=== PATIENT | female | born 1960 | race Caucasian/White ===

== ENCOUNTER 2017-08-23 13:00 | Emergency (ER) | payer MEDICARE, OTHER ==
[2017-08-23 13:24] VITALS: BP 140/75
--- NOTE | 2017-08-23 13:25 | ED Physician Documentation ---
Nausea/Vomiting/Diarrhea - HISTORIAN Historian: patient, spouse - HPI Stated Complaint: Emesis and diarrhea Chief Complaint: Nausea,Vomiting,Diarrhea Onset: other (Since last ) Duration: waxing, waning Last known Well Date: 08/17/17 Last Known Well Time: 08:00 Last known Well Code/Unknown Code: Unknown Timing: gradual onset Context: other (states they were out shopping ). denies: out of country travel , bad food, recent trauma Severity: moderate Further Comments: yes (She reports she has had some nausea and vomiting since . She had two days of diarrhea. That has passed. She states she is not sure if she had a fever (no themometer) but has had chills. She has tried to not eat or drink but is scared to vomit. She has not had any vomting or diarrhea today. she does have nausea) - Associated Symptoms Vomiting: mild Diarrhea: other (Stopped two days ago ) Abdominal Pain: none - ROS CONST: none CVS/RESP: denies: cough MS/SKIN/LYMPH: rash - PAST HX Past History: none Surgeries/Procedures: none Immunizations: referred to PCP Allergies/Adverse Reactions: Allergies Allergy/AdvReac Type Severity Reaction Status Date / Time Sulfa (Sulfonamide Allergy Severe Hives Verified 08/23/17 13:25 Antibiotics) [Sulfa(Sulfonamide Antibiotics)] gabapentin [From Neurontin] Allergy Verified 08/23/17 13:25 pregabalin [From Lyrica] Allergy Verified 08/23/17 13:25 Home Medications: Ambulatory Orders Medication Instructions Recorded Carisoprodol [Soma] 350 mg PO TID 10/03/12 Carisoprodol [Soma] 250 mg PO TID 12/19/15 Chlorthalidone [Thalitone] 25 mg PO DAILY 12/19/15 Lorazepam [Lorazepam] 1 mg PO BID 12/19/15 Omeprazole 20 mg PO DAILY 12/19/15 Potassium [Potassium] 99 mg PO DAILY 12/19/15 Ranitidine HCl 150 mg PO HS 12/19/15 Ondansetron HCl Rapdis [Zofran Odt] 4 mg PO Q8 #30 tab 08/23/17 - SOCIAL HX Smoking History: cigarettes - FAMILY HX Family History: none - VITAL SIGNS Vital Signs: Vital Signs Temp Pulse Resp BP Pulse Ox 96.5 F L 94 H 19 140/75 98 08/23/17 13:12 08/23/17 13:12 08/23/17 13:12 08/23/17 13:12 08/23/17 13:12 - REVIEWED ASSESSMENTS Nursing Assessment Reviewed: Yes Vitals Reviewed: Yes ED Results Lab/Radiology - Lab Results Lab Results: Lab Results 08/23/17 08/23/17 13:50 13:50 WBC 2.40 K/ul L K/ul (4.00-12.00) RBC 3.61 M/ul L M/ul (3.90-5.20) Hgb 12.7 g/dL g/dL (12.0-16.0) Hct 40.3 % % (34.5-46.5) MCV 111.6 fl H fl (80.0-100.0) MCH 35.1 pg H pg (28.0-34.0) MCHC 31.4 g/dL g/dL (30.0-36.0) RDW 12.7 % % (11.3-14.3) Plt Count 209 K/mm3 K/mm3 (130-400) Neut % (Auto) 63.5 % % (39.0-79.0) Lymph % (Auto) 29.0 % % (16.0-50.0) Vance % (Auto) 3.5 % % (0.0-11.0) Eos % (Auto) 2.0 % % (0.0-6.8) Baso % (Auto) 0.5 (0.0-1.5) Neut # (Auto) 1.6 # k/uL # k/uL (1.4-7.7) Lymph # (Auto) 0.7 # k/uL # k/uL (0.6-4.0) Vance # (Auto) 0.1 # k/uL # k/uL (0.0-0.9) Eos # (Auto) 0.0 # k/uL # k/uL (0.0-0.6) Baso # (Auto) 0.0 # k/uL # k/uL (0.0-0.5) Reactive Lymphs % 1.4 % % (0.0-5.0) Reactive Lymphs # 0.0 # k/uL # k/uL (0.0-0.8) Sodium 137 mmol/L mmol/L (136-145) Potassium 3.4 mmol/L L mmol/L (3.5-5.1) Chloride 99 mmol/L mmol/L (98-107) Carbon Dioxide 27 mmol/L mmol/L (22-30) BUN 4 mg/dL L mg/dL (7-17) Creatinine 0.80 mg/dL mg/dL (0.52-1.04) Estimated Creat Clear 180 Est GFR ( Amer) > 60 (60 - ) Est GFR (Non-Af Amer) > 60 (60 - ) Glucose 96 mg/dL mg/dL (74-106) Calcium 8.9 mg/dL mg/dL (8.4-10.2) Total Bilirubin 0.9 mg/dL mg/dL (0.2-1.3) AST 48 U/L H U/L (15-46) ALT 38 U/L U/L (13-69) Alkaline Phosphatase 67 U/L U/L (38-126) Total Protein 9.0 g/dL H g/dL (6.3-8.2) Albumin 4.5 g/dL g/dL (3.5-5.0) - Orders Orders: ED Orders Category Date Time Status Place IV Lock 1T Care 08/23/17 13:36 Active CBC/PLATELET/DIFF Stat Lab 08/23/17 13:50 Completed CMP Stat Lab 08/23/17 13:50 Completed INFLUENZA A&B Stat Lab 08/23/17 13:36 Ordered 0.9 % Sodium Chloride [Normal Saline] 1,000 ml Med 08/23/17 13:37 Discontinued IV Q1H Ondansetron HCl/Pf [Zofran 4 mg/2 ml] Med 08/23/17 13:37 Discontinued 4 mg IVP NOW ONE Nausea Physical Exam - EXAM General Appearance: no acute distress EENT: eye inspection normal Respiratory: no resp distress, chest non-tender, wheezes CVS: reg rate & rhythm, heart sounds normal, equal pulses, no murmur Abdomen: non-tender, no organomegaly Skin: warm/dry Extremities: non-tender Neuro/Psych: oriented X3, CN's nml as tested, motor nml Discharge Clincal Impression: Nausea & vomiting Qualifiers: Vomiting type: unspecified Vomiting Intractability: unspecified Qualified Code( s): R11.2 - Nausea with vomiting, unspecified Prescriptions: Ondansetron HCl Rapdis [Zofran Odt] 4 mg PO Q8 #30 tab Referrals: Christiano Field MD [Primary Care Provider] - 2 Days Comments: Increase fluids. Whitman foods when introducing foods. Return for fever or inability to hold down foods or/liquids with zofran or decrease in urinary output. DG Condition: Stable Disposition: 01 HOME, SELF-CARE Decision to Admit: NO Date of Decison to Admit: 08/23/17 Decision Time: 14:30
[2017-08-23] MEDS ORDERED: 0.9 % SODIUM CHLORIDE 1,000 ML IV ONE (13:37)
[2017-08-23] MEDS ORDERED: ONDANSETRON HCL/PF 4 MG/ 2ML VIAL IVP ONE (13:37)
[2017-08-23 14:20] LABS: BASOPHILS % 0.5 (0.0-1.5); MEAN CORPUSCULAR HEMOGLOBIN 35.1 pg (28.0-34.0); MEAN CORPUSCULAR VOLUME 111.6 fl (80.0-100.0); MONOCYTES % 3.5 % (0.0-11.0); NEUTROPHILS # 1.6 # k/uL (1.4-7.7)
[2017-08-23 14:21] LABS: eGFR (African) > 60; eGFR (Non-African) > 60
== END 2017-08-23 14:38 | disposition home or self-care (01) ==
LOC: ED 13:00
DX: R11.2 Nausea with vomiting, unspecified (principal)
CPT/HCPCS: 80053; 85025; J2405; 87400; 96361; 96374; 99283; S1016

== ENCOUNTER 2017-08-28 17:40 | Emergency (ER) | payer MEDICARE, OTHER ==
--- NOTE | 2017-08-28 17:59 | ED Physician Documentation ---
Upper Respiratory Symptoms - HISTORIAN Historian: patient - HPI Stated Complaint: fever, fatigue and cough Chief Complaint: Fever Onset: days ago (2) Duration: constant Context: denies: recent foreign travel, tick(s), recent chemotherapy, multiple patients Severity: moderate Associated Symptoms: fever, sweating, sinus pain, sore throat, productive cough , shortness of breath Worsened by Deep Breath: Yes Further Comments: yes (She was in the ER 5 days ago with N/V/D and she was given meds for nausea and she states that "the night before last" she started with fever 102 and she woke up this after noon with a cough, fatigue and fever. She has tried OTC meds with little to no relief. She does not thinks she has had any sick contacts. She does smoke. She does take pain meds at home but reports she has not taken one today.) - ROS CONST/EYES: weakness CVS/RESP: shortness of breath. denies: chest pain, palpitations LYMPH: denies: rash GI/: denies: none NEURO/PSYCH: confusion (she is falling alseep while intake is happening ). denies: fainting, dizziness MS/SKIN: muscle aches. denies: rash - PAST HX Lung Disease: COPD PE Risk Factors: hypertension Surgeries/Procedures: none Immunizations: UTD - SOCIAL HX Smoking History: cigarettes Alcohol Use: none Drug Use: none - FAMILY HX Family History: none - REVIEWED ASSESSMENTS Nursing Assessment Reviewed: Yes Vitals Reviewed: Yes <Sushma Piper - Last Filed: 08/28/17 18:51> <Jerome Martins - Last Filed: 08/28/17 20:34> - PAST HX Allergies/Adverse Reactions: Allergies Allergy/AdvReac Type Severity Reaction Status Date / Time Sulfa (Sulfonamide Allergy Severe Hives Verified 08/23/17 13:25 Antibiotics) [Sulfa(Sulfonamide Antibiotics)] gabapentin [From Neurontin] Allergy Verified 08/23/17 13:25 pregabalin [From Lyrica] Allergy Verified 08/23/17 13:25 Home Medications: Ambulatory Orders Medication Instructions Recorded Carisoprodol [Soma] 350 mg PO TID 10/03/12 Carisoprodol [Soma] 250 mg PO TID 12/19/15 Chlorthalidone [Thalitone] 25 mg PO DAILY 12/19/15 Lorazepam [Lorazepam] 1 mg PO BID 12/19/15 Omeprazole 20 mg PO DAILY 12/19/15 Potassium [Potassium] 99 mg PO DAILY 12/19/15 Ranitidine HCl 150 mg PO HS 12/19/15 Ondansetron HCl Rapdis [Zofran Odt] 4 mg PO Q8 #30 tab 08/23/17 Amoxicillin [Trimox] 500 mg PO Q8H #30 capsule 08/28/17 - VITAL SIGNS Vital Signs: Vital Signs Temp Pulse Resp BP Pulse Ox 97.9 F 97 H 16 153/86 96 08/28/17 17:45 08/28/17 17:45 08/28/17 17:45 08/28/17 17:45 08/28/17 17:45 Progress <Sushma Piper - Last Filed: 08/28/17 18:51> <Jerome Martins - Last Filed: 08/28/17 20:34> - Progress Progress: Rx amoxicillin 500 mg po tid x 10 days, 1st dose in ER. (Jerome Martins) ED Results Lab/Radiology <Sushma Piper - Last Filed: 08/28/17 18:51> <Jerome Martins - Last Filed: 08/28/17 20:34> - Lab Results Lab Results: Lab Results 08/28/17 08/28/17 08/28/17 19:00 19:00 19:00 WBC 2.30 K/ul L K/ul (4.00-12.00) RBC 3.11 M/ul L M/ul (3.90-5.20) Hgb 10.7 g/dL L g/dL (12.0-16.0) Hct 34.2 % L % (34.5-46.5) MCV 110.2 fl H fl (80.0-100.0) MCH 34.4 pg H pg (28.0-34.0) MCHC 31.3 g/dL g/dL (30.0-36.0) RDW 12.8 % % (11.3-14.3) Plt Count 153 K/mm3 K/mm3 (130-400) Seg Neutrophils % 44 % % (39-79) Band Neutrophils % 9 % % (0-12) Lymphocytes % 40 % % (16-50) Monocytes % 2 % % (0-11) Eosinophils % 2 % % (0-7) Reactive Lymphocytes 3 % % (0-5) Plt Morphology Comment Normal (NORMAL) Hypochromasia 1+ H (NEGATIVE) Macrocytosis 2+ H (NEGATIVE) RBC Morph Comment Abnormal H (NORMAL) Sodium 132 mmol/L L mmol/L (136-145) Potassium 2.8 mmol/L L mmol/L (3.5-5.1) Chloride 95 mmol/L L mmol/L (98-107) Carbon Dioxide 28 mmol/L mmol/L (22-30) BUN 5 mg/dL L mg/dL (7-17) Creatinine 0.90 mg/dL mg/dL (0.52-1.04) Estimated Creat Clear 73 Est GFR ( Amer) > 60 (60 - ) Est GFR (Non-Af Amer) > 60 (60 - ) Glucose 100 mg/dL mg/dL (74-106) Calcium 8.2 mg/dL L mg/dL (8.4-10.2) Total Bilirubin 0.5 mg/dL mg/dL (0.2-1.3) AST 29 U/L U/L (15-46) ALT 38 U/L U/L (13-69) Alkaline Phosphatase 90 U/L U/L (38-126) NT-Pro-B Natriuret Pep 93.4 pg/mL pg/mL (15.0-125.0) Total Protein 7.6 g/dL g/dL (6.3-8.2) Albumin 3.8 g/dL g/dL (3.5-5.0) - Radiology Radiology Impressions: Pa and lateral chest Clinical history : Coughing the MRI spine. Technique pa and lateral upright Findings: The lung walton are clear. I see no hilar or mediastinal mass. Aortic arch calcification is present. Lung walton are hyperinflated. There is no pleural effusion. The normal kyphotic curve is straightened. Thoracic spondylosis is present.. Impression: No acute pulmonary disease Hyperinflation Electronically signed on Aug 28, 2017 6:50:20 PM METAL EXTR[employer]ION SUPERVISOR by: Adilson Thomas (Sushma Piper) - Orders Orders: ED Orders Category Date Time Status Place IV Lock 1T Care 08/28/17 18:04 Active CHEST 2 VIEW [CHEST P.A.&LAT 2 VIEWS] [RAD] Stat Exams 08/28/17 18:04 Taken BLOOD CULTURE Stat Lab 08/28/17 Ordered BNP [NT-proBNP] Stat Lab 08/28/17 19:00 Completed CBC/PLATELET/DIFF Stat Lab 08/28/17 19:00 Completed CMP Stat Lab 08/28/17 19:00 Completed INFLUENZA A&B Stat Lab 08/28/17 18:05 Ordered 0.9 % Sodium Chloride [Normal Saline] 1,000 ml Med 08/28/17 18:05 Discontinued IV Q1H Amoxicillin [Amoxil] Med 08/28/17 20:21 Discontinued 500 mg PO NOW ONE Ipratropium/Albuterol Sulfate [Duoneb] Med 08/28/17 18:53 Discontinued 3 ml NEB NOW ONE Potassium Chloride [Klor-Con M20] Med 08/28/17 19:23 Discontinued 20 meq PO NOW ONE Sodium Chloride For Inhalation [Dey] Med 08/28/17 18:56 Discontinued 3 ml IH .STK-MED ONE EKG WITH COMPARISON Stat Ther 08/28/17 Ordered Upper Respiratory Symptoms - EXAM General Appearance: lethargic (she is falling asleep with exam and intake ) EENT: pharynx nml Neck: normal inspection Respiratory: decreased air movement, wheezes, rhonchi Abdomen: non-tender, no organomegaly, nml bowel sounds CVS: reg rate & rhythm, heart sounds normal, equal pulses, no murmur Skin: color nml, no rash, warm,dry Extremities: non-tender, normal range of motion Neuro/Psych: oriented x3, neuro intact, other (she is oriented appropriately when she wakes but she does have to be stimulated to wake ) <Sushma Piper - Last Filed: 08/28/17 18:51> Discharge <Sushma Piper - Last Filed: 08/28/17 18:51> Decision to Admit: NO Decision Time: 20:24 <Jerome Martins - Last Filed: 08/28/17 20:34> Clincal Impression: Cough Prescriptions: Amoxicillin [Trimox] 500 mg PO Q8H #30 capsule Referrals: Christiano Field MD [Primary Care Provider] - Condition: Stable Disposition: 01 HOME, SELF-CARE
[2017-08-28] MEDS: 0.9 % SODIUM CHLORIDE 1,000 ML IV ONE (18:40)
[2017-08-28] MEDS ORDERED: SODIUM CHLORIDE 3 ML VIAL.NEB IH ONE (18:56)
[2017-08-28] MEDS: IPRATROPIUM/ALBUTEROL SULFATE 3 ML AMPUL.NEB NEB ONE (19:05)
[2017-08-28 19:13] LABS: MEAN CORPUSCULAR HEMOGLOBIN 34.4 pg (28.0-34.0); MEAN CORPUSCULAR VOLUME 110.2 fl (80.0-100.0)
[2017-08-28 19:20] LABS: eGFR (African) > 60; eGFR (Non-African) > 60
[2017-08-28] MEDS: POTASSIUM CHLORIDE 20 MEQ TABLET.ER PO ONE (19:42)
[2017-08-28 20:01] LABS: EOSINOPHILS % 2 % (0-7); HYPOCHROMASIA 1+ (NEGATIVE); MONOCYTES % 2 % (0-11); SEGMENTED NEUTROPHILS % 44 % (39-79)
[2017-08-28] MEDS: AMOXICILLIN 500 MG CAPSULE PO ONE (20:23)
[2017-08-28 20:40] VITALS: BP 160/82
--- NOTE | 2017-08-28 20:52 | Diagnostic Imaging Report ---
VINAY SABILLON [facility] [id number] [facility] [address] [place], [place]. [address] Report Submission Date: Aug 28, 2017 6:50:20 PM POULTRY KILLER Patient Study Name: JANE KWAN Date: Aug 28, 2017 6:30:31 PM POULTRY KILLER Modality Type: CR Gender: F Description: CHEST : 56 Institution: [facility] Physician: VINAY SABILLON Pa and lateral chest Clinical history : Coughing the MRI spine. Technique pa and lateral upright Findings: The lung walton are clear. I see no hilar or mediastinal mass. Aortic arch calcification is present. Lung walton are hyperinflated. There is no pleural effusion. The normal kyphotic curve is straightened. Thoracic spondylosis is present.. Impression: No acute pulmonary disease Hyperinflation Electronically signed on Aug 28, 2017 6:50:20 PM POULTRY KILLER by: Adilson MADISON
== END 2017-08-28 20:30 | disposition home or self-care (01) ==
LOC: ED 17:40
DX: R05 Cough (principal); R50.9 Fever, unspecified; J44.1 Chronic obstructive pulmonary disease with (acute) exacerbation; F17.210 Nicotine dependence, cigarettes, uncomplicated
CPT/HCPCS: 71020; 80053; 83880; 85025; 87400; 93005; A9270; J7030; 94640; 99283; S1016

== ENCOUNTER 2018-02-06 20:39 | Emergency (ER) | payer MEDICARE, OTHER ==
--- NOTE | 2018-02-06 20:55 | ED Physician Documentation ---
General Adult - HISTORIAN Historian: patient - HPI Stated Complaint: rash Chief Complaint: General Adult Onset: days ago Timing: still present Severity: moderate Further Comments: yes (Pt is a 57 yo female with a rash pruritic rash that she' s had for several days.) - ROS CONST: no problems EYES/ENT: none CVS/RESP: none GI/: none MS/SKIN/LYMPH: rash - PAST HX Past History: hypertension, other (GERD) Allergies/Adverse Reactions: Allergies Allergy/AdvReac Type Severity Reaction Status Date / Time Sulfa (Sulfonamide Allergy Severe Hives Verified 02/06/18 20:57 Antibiotics) [Sulfa(Sulfonamide Antibiotics)] gabapentin [From Neurontin] Allergy Verified 02/06/18 20:57 pregabalin [From Lyrica] Allergy Verified 02/06/18 20:57 Home Medications: Ambulatory Orders Medication Instructions Recorded Carisoprodol [Soma] 350 mg PO TID 10/03/12 Carisoprodol [Soma] 250 mg PO TID 12/19/15 Chlorthalidone [Thalitone] 25 mg PO DAILY 12/19/15 Lorazepam [Lorazepam] 1 mg PO BID 12/19/15 Omeprazole 20 mg PO DAILY 12/19/15 Potassium [Potassium] 99 mg PO DAILY 12/19/15 Ranitidine HCl 150 mg PO HS 12/19/15 Ondansetron HCl Rapdis [Zofran Odt] 4 mg PO Q8 #30 tab 08/23/17 - SOCIAL HX Smoking History: cigarettes - FAMILY HX Family History: No - VITAL SIGNS Vital Signs: Vital Signs Temp Pulse Resp BP Pulse Ox 160/82 08/28/17 20:30 - REVIEWED ASSESSMENTS Nursing Assessment Reviewed: Yes Vitals Reviewed: Yes Progress - Progress Progress: Rx Prednisone 50 mg. Take one tablet by mouth once daily for 5 days. May use [id number] Benadryl and Zantac (or Pepcid) as directed. May use [id number] Hydrocortisone cream. General Adult Physical Exam - PHYSICAL EXAM GENERAL APPEARANCE: mild distress NECK: normal inspection, supple RESPIRATORY: no resp distress, chest non-tender, breath sounds normal CVS: reg rate & rhythm, heart sounds normal BACK: normal inspection, no CVA tenderness SKIN: other (small raised erythematous lesions on trunk, arms, legs; appear like bug bites) EXTREMITIES: non-tender, normal range of motion, no evidence of injury NEURO: oriented X3, motor nml, sensation nml Discharge Clincal Impression: Rash Referrals: Christiano Field MD [Primary Care Provider] - Condition: Good Disposition: 01 HOME, SELF-CARE Decision to Admit: NO Decision Time: 21:16
[2018-02-06] MEDS: methylPREDNISolone SOD SUCC 40 MG/ML VIAL IM ONE (21:03)
== END 2018-02-06 21:05 | disposition home or self-care (01) ==
LOC: ED 20:39
DX: R21 Rash and other nonspecific skin eruption (principal)
CPT/HCPCS: 99283; J2920; J1030

== ENCOUNTER 2019-05-14 19:19 | Emergency (ER) | payer MEDICARE, OTHER ==
[2019-05-14 19:44] VITALS: BP 115/68
--- NOTE | 2019-05-14 19:45 | ED Physician Documentation ---
Female Urogenital Problems - HISTORIAN Historian: patient - HPI Stated Complaint: painful urination Chief Complaint: Female Urogenital Problems Additional Information: Patient is a 58 year old female who presents to the ER with c/o burning with urination that started yesterday. She states that she does not drink enough water- drinks a lot of carbonated beverages. She states that Cipro works best for her but she also needs Zofran because it causes her nausea. Denies any fever, chills, nausea or vomiting. Onset: days ago Severity: mild - Vaginal Bleeding Sexual History: inactive - Associated Symptoms Urinary Symptoms: frequent urination, discomfort w/ urination, burning w/ urination Discharge: denies: vaginal discharge - ROS CONST: none GI/: denies: nausea, vomiting CVS/RESP: none EYES/ENT: none NEURO/PSYCH: none MS/SKIN/LYMPH: none - PAST HX Past History: none Other History: other (GERD, COPD, Anxiety and depression) Immunizations: UTD Allergies/Adverse Reactions: Allergies Allergy/AdvReac Type Severity Reaction Status Date / Time Sulfa (Sulfonamide Allergy Severe Hives Verified 01/04/19 13:45 Antibiotics) [Sulfa(Sulfonamide Antibiotics)] gabapentin [From Neurontin] Allergy Verified 01/04/19 13:45 pregabalin [From Lyrica] Allergy Verified 01/04/19 13:45 Home Medications: Ambulatory Orders Medication Instructions Recorded Carisoprodol [Soma] 350 mg PO TID 10/03/12 Carisoprodol [Soma] 250 mg PO TID 12/19/15 Lorazepam 1.5 tab PO BID 12/19/15 Omeprazole 20 mg PO DAILY 12/19/15 Ciprofloxacin HCl [Cipro] 500 mg PO BID #14 tablet 05/14/19 Morphine Sulfate [Ms Contin] 2 tab PO TID 05/14/19 Morphine Sulfate [Ms Contin] 30 mg PO TID 05/14/19 Ondansetron HCl Rapdis [Zofran Odt] 4 mg PO Q8 PRN #10 tab 05/14/19 - SOCIAL HX Smoking History: greater than 1 pack/day Alcohol Use: none Drug Use: none - FAMILY HX Family History: none - VITAL SIGNS Vital Signs: Vital Signs Temp Pulse Resp BP Pulse Ox 98.4 F 84 16 115/68 97 05/14/19 19:33 05/14/19 19:33 05/14/19 19:33 05/14/19 19:33 05/14/19 19:33 - REVIEWED ASSESSMENTS Nursing Assessment Reviewed: Yes Vitals Reviewed: Yes ED Results Lab/Radiology - Orders Orders: ED Orders Category Date Time Status URINALYSIS Routine Lab 05/14/19 Ordered Ciprofloxacin HCl [Cipro] Med 05/14/19 19:39 Once 500 mg PO NOW ONE Ondansetron HCl Rapdis [Zofran Odt] Med 05/14/19 19:39 Once 4 mg PO NOW ONE Female Urogenital Problems - EXAM General Appearance: no acute distress, alert EENT: eye inspection normal, ENT inspection normal, pharynx normal, BATSHEVA, dry mucous membranes Respiratory: breath sounds nml CVS: heart sounds normal Abdomen: soft, non-tender, no distention Skin: color nml, no rash, warm,dry Extremities: non-tender, normal range of motion Neuro: oriented X3, CN's nml as tested, motor nml, sensation nml, mood/affect nml Discharge Clincal Impression: UTI (urinary tract infection) Prescriptions: Ciprofloxacin HCl [Cipro] 500 mg PO BID #14 tablet Ondansetron HCl Rapdis [Zofran Odt] 4 mg PO Q8 PRN #10 tab PRN Reason: Nausea / Vomiting Referrals: Christiano Field MD [REFERRING] - 2 Days Additional Instructions: Start medications tomorrow (1st dose in ER) Try to drink 64 oz of water daily Follow up with PCP next week for re-evaluation Condition: Good Disposition: 01 HOME, SELF-CARE Decision to Admit: NO Decision Time: 22:14
[2019-05-14] MEDS: ONDANSETRON HCL 4 MG TAB.RAPDIS PO ONE (19:48)
[2019-05-15 06:25] LABS: APPEARANCE,URINE CLEAR (CLEAR); COLOR,URINE YELLOW (YELLOW); OCCULT BLOOD,URINE TRACE (NEGATIVE); UROBILINOGEN URINE 0.2 Eu (0.2-1.0)
== END 2019-05-14 19:52 | disposition home or self-care (01) ==
LOC: ED 19:19
DX: N39.0 Urinary tract infection, site not specified (principal)
CPT/HCPCS: 81002; 87086; 99283; 99284; A9270; 87186